=== PATIENT | female | born 1970 | race Two or more races ===

== ENCOUNTER → 2017-07-17 | Outpatient (CLI) | payer BC | END | disposition home or self-care (01) | LOC: CFH 12:21 | PROVIDERS: ATTEND Internal Medicine | DX: Z12.31 Encounter for screening mammogram for malignant neoplasm of breast (principal); N85.2 Hypertrophy of uterus; D25.1 Intramural leiomyoma of uterus; G89.29 Other chronic pain; N92.6 Irregular menstruation, unspecified | CPT/HCPCS: 76830; G0202 ==